=== PATIENT | male | born 1985 | race Two or more races ===

== ENCOUNTER 2020-12-08 13:04 | Emergency (ER) | payer OTHER ==
[2020-12-08 13:26] VITALS: BP 121/62; PULSE 56; TEMP 98.8; BMI 20.9
== END 2020-12-08 15:31 | disposition home or self-care (01) ==
LOC: JER 13:04
DX: B34.9 Viral infection, unspecified (principal); Z11.52 Encounter for screening for COVID-19
CPT/HCPCS: 71046-TC-FY; 87426; 99283-25